=== PATIENT | male | born 1940 | race Caucasian/White ===

== ENCOUNTER 2016-10-15 05:28 | Inpatient (IN) | payer MEDICARE, OTHER ==
[2016-10-09 14:13] LABS: BASOPHILS 0.3 %; BASOPHILS ABSOLUTE 0.03 10/3/uL (0.0-0.16); EOSINOPHILS 2.6 %; EOSINOPHILS ABSOLUTE 0.29 10/3/uL (0.0-0.53); HEMATOCRIT 40.9 % (40.0-51.0); HEMOGLOBIN 13.3 g/dL (13.6-17.8); IMMATURE GRANULOCYTES 0.2 %; IMMATURE GRANULOCYTES ABSOLUTE 0.02 10/3/uL (0.0-0.11); LYMPHOCYTES 11.2 %; LYMPHOCYTES ABSOLUTE 1.23 10/3/uL (0.67-4.30); MEAN CORPUS HGB CONC 32.5 g/dL (32.0-36.0); MEAN CORPUSCULAR HEMOGLOB 31.7 pg (26.0-34.0); MEAN CORPUSCULAR VOLUME 97.4 fL (80-100); MEAN PLATELET VOLUME 12.4 fL (9.2-13.0); MONOCYTES 5.1 %; MONOCYTES ABSOLUTE 0.56 10/3/uL (0.21-1.20); NEUTROPHILS 80.6 %; NEUTROPHILS ABSOLUTE 8.89 10/3/uL (2.02-8.40); PLATELET COUNT 176 10/3/uL (150-400); RBC DISTRIBUTION WIDTH 15.3 % (12.0-16.0)
[2016-10-09 14:15] LABS: MANUAL DIFF NO %
[2016-10-09 14:18] LABS: INTERNATIONAL NORMAL RATI 1.2 UNITS (-); PROTIME (NOT ORD) 14.7 SEC (12.0-14.5)
[2016-10-09 14:25] LABS: A/G RATIO 0.9 (0.7-1.9); ALBUMIN 3.5 G/DL (3.5-5.0); ALKALINE PHOSPHATASE 144 U/L (45-117); BUN (BLOOD UREA NITROGEN) 33 MG/DL (6-23); CALCIUM, SERUM 9.3 MG/DL (8.5-10.4); CHLORIDE, SERUM 95 MMOL/L (96-112); CO2 (CARBON DIOXIDE) 33 MMOL/L (24-34); CREATININE 8.18 MG/DL (0.70-1.30); GFR AFRICAN AMERICAN 7 ML/MIN (>=60); GFR NON AFRICAN AMERICAN 6 ML/MIN (>=60); GLOBULIN 4.1 G/DL (2.5-4.1); GLUCOSE, SERUM 122 MG/DL (60-99); POTASSIUM, SERUM 4.7 MMOL/L (3.5-5.3); SGOT(AST) 5 U/L (5-40); SGPT(ALT) 11 U/L (5-65); SODIUM, SERUM 139 MMOL/L (135-148); TOTAL BILIRUBIN 0.8 MG/DL (0-1.2); TOTAL PROTEIN 7.6 G/DL (6.0-8.5)
[2016-10-09 14:47] LABS: B NATRIURETIC PEPTIDE (BNP) 2493.8 PG/ML (< 100.0)
[2016-10-09 22:19] LABS: GLYCOHEMOGLOBIN (HbA1c) 6.8 % (4.7-6.1)
--- NOTE | ~2016-10-15 | OP ---
Record Of Operation [facility] [address] [place]. [address] NAME: COREY ORTIZ : 41 STATUS : ADM IN PAT#: [id number] AGE: 76 ADM/REG DATE : 10/15/16 MR#: [id number] REPORT SERV DATE: 10/16/16 DICTATED BY: RASHI SINCLAIR DATE: 10/15/16 REPORT STATUS : Draft TRANSCRIBED BY: ADRIEN DATE: 10/15/16 DATE OF PROCEDURE: TAVR NOTE PROCEDURE: Right transfemoral transcatheter aortic valve replacement using 34 mm Medtronic Evolut R. INDICATIONS FOR PROCEDURE: Mr. Corey Ortiz is a 76-year-old gentleman with severe aortic stenosis. He has severe coronary artery disease, recently had a stent placed to mid LAD. He has renal failure, he is on dialysis. He has had prior stroke. He has had history of diabetes, hypertension, hyperlipidemia, polycythemia vera, and prostate cancer. His ejection fraction was 30%. His predicted mortality by the STS score 6.7%, predicted morbidity-mortality 39.1%. His predicted mortality by the EuroSCORE 4.25%. He presents with class III heart failure symptoms. He was seen by both Dr. Castañeda and Dr. Moran, who felt he was a poor candidate for surgical aortic valve replacement. He was seen by the entire [facility] valve team, who felt he was a better candidate for transcatheter aortic valve replacement. POSTOPERATIVE DIAGNOSIS: Successful right transfemoral transcatheter aortic valve replacement using Medtronic 34 mm Mon Evolut R. OPERATORS: Theo Moran M.D., Rashi Sinclair M.D., and Haider Campuzano M.D. OPERATIVE TECHNIQUE: The patient was prepped and draped in the usual sterile fashion. He received propofol anesthesia. He was not intubated. He had a right heart catheter inserted via IJ approach. He had a right IJ sheath, to allow placement of a temporary pacemaker. He had a radial A-line in place. The patient was prepped and draped in the usual sterile fashion. The right and left groins were anesthetized with lidocaine 1%, 12 mL. Access to both the left and right femoral arteries obtained using a front wall technique using a micropuncture technique, angiogram demonstrated access in the common femoral arteries. The pigtail was placed through the left femoral artery sheath inserted in the non-coronary cusp to allow us the position the Medtronic valve. Two ProGlide sutures were placed in the right femoral artery at 10 o'clock and 2 o'clock position in the pre-close technique. We then replaced the 6-Sri Lankan sheath. We delivered a multipurpose catheter over the J-wire into the ascending aorta. We crossed the aortic valve without difficulty using an AL1 and a straight wire. We then measured simultaneous pressures between the left ventricle and ascending aorta using a double lumen, [place] catheter. Record Of Operation [facility] [address] [place]. [address] NAME: COREY ORTIZ : 41 STATUS : ADM IN PAT#: [id number] AGE: 76 ADM/REG DATE : 10/15/16 MR#: [id number] REPORT SERV DATE: 10/16/16 DICTATED BY: RASHI SINCLAIR DATE: 10/15/16 REPORT STATUS : Draft TRANSCRIBED BY: ADRIEN DATE: 10/15/16 At this time, we placed the Lunderquist double curved wire in the left ventricle. The 6-Sri Lankan sheath was removed, the wire was kept in the ventricle, we then dilated the right femoral artery with the 16-Sri Lankan dilator. We then inserted the valve delivery system with inline sheath into the right femoral artery without difficulty. After delivery of the valve, he immediately received heparin IV, the activating clotting time was therapeutic. We then precisely positioned the Medtronic valve at the aortic annulus. The self expanding valve was initially deployed. With initial attempt at deployment of this valve, the patient developed hypotension with . He was emergently intubated without difficulty. He received chest compressions for about 1 minute. His blood pressure returned. Chest wall echo demonstrated no pericardial effusion, there is no evidence of tamponade. Once the blood pressure stabilized, we proceeded with the deployment of the Medtronic valve without rapid ventricular pacing, the valve was deployed. We had excellent position of this valve with careful deployment. The thoracic aortogram demonstrated no aortic insufficiency. Chest wall echocardiogram demonstrated no aortic insufficiency. We crossed the valve without difficulty using the pigtail catheter. We measured pullback pressure. At this time, we pulled the valve delivery system into the inline sheath, we removed the in- line sheath, keeping the wire in place. The completion aortogram demonstrated no flow in the distal portion of the right external iliac artery. Then, Dr. Campuzano used a J-wire through an UF catheter to go from the left femoral artery, antegrade to the right femoral artery. The Raabe sheath was placed from the left femoral artery into the right superficial femoral artery. Injection demonstrated markedly improved flow simply by placing the wire through the right common femoral artery. The access site was then dilated using a 6 mm x 4 cm balloon, two different inflations. We consulted Dr. Gamez from Vascular Surgery. Repeat angiograms demonstrated normal flow in the common femoral artery and slow flow in SFA. Multiple injections were repeated. There was slow flow into the right SFA. The team felt the patient had chronic occlusion, chronic disease throughout the right superficial femoral artery. At this time, the plan was to proceed with heparin infusion without further dilatation of the common femoral artery or the SFA, not to place a stent in the common femoral artery. The actual time of valve deployment was 1524. The cardiac output pre-deployment was 4.3 L/minute, post deployment the cardiac output 5.2 L/minute. The valve area pre-deployment Record Of [place] [id number] [place]. [address] NAME: COREY ORTIZ : 41 STATUS : ADM IN PAT#: [id number] AGE: 76 ADM/REG DATE : 10/15/16 MR#: [id number] REPORT SERV DATE: 10/16/16 DICTATED BY: RASHI SINCLAIR DATE: 10/15/16 REPORT STATUS : Draft TRANSCRIBED BY: ADRIEN DATE: 10/15/16 was 0.9 sq cm, post-deployment 2.43 sq cm. The blood pressure pre-deployment was 88/61, mean of 74, heart rate is 84; post deployment blood pressure was 127/67, mean of 88 with a heart rate of 106. The valve gradient pre-deployment was 28 mmHg mean, 31 mmHg peak. There was no gradient, gradient field, mean and peak postprocedure. The total contrast volume used was 200 mL. Total fluoro time was 39.1 minutes. Estimated blood loss was less than 50 mL. Total radiation dose of 3853 mGy. There is no aortic insufficiency by chest wall echo or thoracic aortogram. The AI index was 37. In summary, the patient had the right transfemoral transcatheter aortic valve replacement using a Medtronic 34 mm Evolut R valve. The valve area increased from 0.9 to 2.4, the gradient decreased from 28 mmHg mean to 0 mmHg mean. The procedure was complicated by EMD cardiac arrest requiring chest compressions and intubation. The valve was successfully deployed without rapid ventricular pacing. There was no flow at the right common femoral artery, which improved with balloon dilation alone. PLAN: 1. Heparin will be continued overnight. 2. Pacemaker left in place overnight and treatment with aspirin and clopidogrel. 3. Nephrology will be consulted, the patient was dialyzed preprocedure. RENÉ/ADRIEN Rashi Sinclair M.D. / [id number] CC: Theo Moran M.D.
--- NOTE | ~2016-10-15 | EEG ---
Electroencephalogram [facility] [address] [place]. [address] NAME: VALERIA APPIAH : 41 STATUS : ADM IN PAT#: [id number] AGE: 76 ADM/REG DATE : 10/15/16 MR#: [id number] REPORT SERV DATE: 10/16/16 DICTATED BY: DATE: REPORT STATUS : Draft TRANSCRIBED BY: MODL DATE: 10/16/16 NEUROLOGY EEG REPORT CLINICAL INDICATIONS: Encephalopathy, possible hemorrhage. INTERPRETATION: This EEG was performed using 10/20 electrode placement system. During the EEG study, symmetric background activity was noted with predominant occipital rhythm of roughly 8 hertz. Photic stimulation was performed without clear driving response. Hyperventilation was not performed secondary to recent surgery. Otherwise, the patient achieved drowsy state during the EEG study. No focal abnormalities, seizure activity, or seizure discharge was noted. No electrographic seizure or clinical seizure was captured during the EEG study. INTERPRETATION: This EEG study obtained during awake, drowsy state may be considered within normal limits. No focal abnormalities, seizure activity, or seizure discharge was otherwise noted. Clinical correlation is recommended. [facility]/MODL Cong Wharton MD / [id number] CC: Catherine Villarreal M.D.
--- NOTE | ~2016-10-15 | OP ---
Record Of [address] [place]. [address] NAME: VALERIA APPIAH : 41 STATUS : ADM IN PAT#: [id number] AGE: 76 ADM/REG DATE : 10/15/16 MR#: [id number] REPORT SERV DATE: 10/16/16 DICTATED BY: XENA MORAN DATE: 10/15/16 REPORT STATUS : Draft TRANSCRIBED BY: MODL DATE: 10/15/16 DATE OF PROCEDURE: 10/15/2016 PREOPERATIVE DIAGNOSES: 1. Aortic valve stenosis. 2. End-stage renal disease. 3. Coronary artery disease, status post previous coronary artery bypass grafting. 4. Severe peripheral vascular disease. 5. Chronic systolic heart failure (ejection fraction 25%). 6. History of previous cerebrovascular accident. 7. Diabetes mellitus type 2, non-insulin dependent. 8. Hypertension. 9. Prostate carcinoma. POSTOPERATIVE DIAGNOSES: 1. Aortic valve stenosis. 2. End-stage renal disease. 3. Coronary artery disease, status post previous coronary artery bypass grafting. 4. Severe peripheral vascular disease. 5. Chronic systolic heart failure (ejection fraction 25%). 6. History of previous cerebrovascular accident. 7. Diabetes mellitus type 2, non-insulin dependent. 8. Hypertension. 9. Prostate carcinoma. PROCEDURE PERFORMED: 1. Right transfemoral TAVR, 34 mm Medtronic Evolut R valve. 2. ProGlide closure of the right femoral artery x2. 3. Angio-Seal closure of left femoral artery x1. 4. Ascending aortography. 5. Right iliofemoral angiography. 6. PTCA of right iliac and femoral vessels. 7. Transthoracic echocardiography. SURGEONS: 1. Xena Moran M.D. 2. Haider Campuzano M.D. 3. Cole Sinclair M.D. 4. Zaki Castañeda. PAPER SAMPLE CLERK: Emanuel Prasad M.D. PRIMARY HEALTH WORKER: Cole Sinclair M.D., PRIMARY CARE: Lacey Killian M.D. Record Of [address] [place]. [address] NAME: VALERIA APPIAH : 41 STATUS : ADM IN PAT#: [id number] AGE: 76 ADM/REG DATE : 10/15/16 MR#: [id number] REPORT SERV DATE: 10/16/16 DICTATED BY: XENA MORAN DATE: 10/15/16 REPORT STATUS : Draft TRANSCRIBED BY: MODL DATE: 10/15/16 INDICATIONS: This is a 76-year-old gentleman with history of end-stage renal disease along with ischemic cardiomyopathy and previous coronary artery bypass grafting and stenting of the vessels earlier this year. He has a long history of aortic valve stenosis and severe peripheral vascular disease. In 05/2016, he apparently had a stroke, it affected his vision in right eye and equilibrium. Echocardiography demonstrated reduced ventricular function with known history of ejection fraction of 25% to 30%. He had a previous history of syncope in May also. Because of progressive dyspnea, he underwent repeat echocardiography, it demonstrated progression of his aortic valve stenosis. His most recent echocardiogram demonstrated an ejection fraction of 30% with a valve area of 0.8 sq cm and peak gradient of 46 and mean gradient 28 mmHg. Cardiac catheterization in July also demonstrated significant coronary artery disease. He underwent stenting of the distal LAD in August as planned for consideration for TAVR. He was discussed for possible aortic valve replacement. It was felt to be very high risk for surgical intervention. His risk of mortality by STS risk prediction model with 7% morbidity and was closer to 40%. We discussed possible TAVR procedure with the patient and his daughters. After discussing the operation, its indications, and risks, they wished to proceed. FINDINGS AT OPERATION: 1. Total rapid pacing time was not performed. 2. Actual time of TAVR deployment was 1524 hours. 3. Cardiac output pre-deployment 4.3, post deployment 5.2 L per minute. 4. Valve area pre-deployment was 0.89 cm, post deployment was 2.43 cm. 5. Pre-implant aortic pressures: Systolic 88, diastolic 61, mean 74 mmHg. 6. Postimplant aortic pressures: Systolic 127, diastolic 67, mean 88 mmHg. 7. Pre-implant AV gradient, mean 28, peak 31 mmHg. Post-implant AV gradient mean 5, peak 4 mmHg. 8. Contrast volume used 200 mL. 9. Fluoro time was 39.1 minute. 10.Estimated blood loss 50 mL. 11.Total mGy 3053. 12.AI index was 37. PROCEDURE: The patient was brought to the hybrid operating suite and laid in a supine position on the operating room table. We had discussions with the [employer] rep and Ladonna, who was with us today. After discussion, a re-examination of the CTA is felt that a right transfemoral approach would be feasible and this was preferable to the left subclavian artery approach for a low risk. Therefore, this procedure was performed through the right and left groins. Microneedle access to the left femoral artery and vein was carried out and right femoral artery. Confirmatory angiography of the left femoral arteries was performed. Temporary transvenous pacemaker was placed by Anesthesia, and the right IJ prior to coming in the room. A flexible wire was advanced up the left femoral artery and a pigtail catheter placed over this into the ascending aorta and in the noncoronary cusp. An angiography confirmed Record Of Operation [facility] [address] [facility] [place]. [address] NAME: VALERIA APPIAH : 42 STATUS : ADM IN PAT#: [id number] AGE: 76 ADM/REG DATE : 10/15/16 MR#: [id number] REPORT SERV DATE: 10/16/16 DICTATED BY: XENA MORAN DATE: 10/15/16 REPORT STATUS : Draft TRANSCRIBED BY: MODElian DATE: 10/15/16 presence and allowed us to the line the valve. Right femoral artery guidewire was placed and then 2 ProGlide closure devices were placed in the right femoral artery and deployed. Then, the AL1 catheter was advanced over guidewire into the ascending aorta. The valve was crossed with a straight wire. The AL1 catheter advanced and across the valve and an exchange wire was then advanced across the aortic valve. A Ghulam dual-lumen catheter was placed and simultaneous pressure measurements were made across the aortic valve. A Lunderquist guidewires advanced across aortic valve through the Ghulam catheter was removed. Then, the right femoral artery puncture site and iliac vessel was dilated using a 16-Mongolian introducer dilator. Then, the valve apparatus and sheath were brought up to the field and the valve delivery system was placed over the guidewire into the descending thoracic aorta. The valve was then loaded on the delivery system. The delivery system was then advanced across the upper around the arch of the aorta and across the aortic valve and positioned. Parallax was taking out of the angiography. Then without rapid ventricular pacing, the valve was attempted to be deployed. Unfortunately the core valve prosthetic devices slipped above the plane of the valve and we re-sheath. During this time, the patient's blood pressure fell and had a slow recovery. Compressions were given and epinephrine doses were administered by anesthesia with good recovery after [id number] to two minutes of compression. The patient was then intubated by anesthesia for airway maintenance given this event. The valve was then repositioned across the Evolut valve was then the that was repositioned across the [place] aortic valve annulus. Confirmatory positioning was obtained. We then deployed the valve a second time with good seating of the valve. Once the valve was in place, the delivery system was brought back down into the descending thoracic aorta. The pigtail catheter was brought out into the ascending aorta and confirmatory aortography was performed demonstrating no aortic insufficiency. Echocardiography was likewise performed demonstrating good valve position with no aortic insufficiency. The valve delivery system was then brought out through the right groin along with the sheath. The ProGlide closures were deployed in the right femoral artery. The pigtail catheter placed earlier in the left femoral artery was brought down to the aortic bifurcation. Angiography performed demonstrating occlusion of the right limb of the iliac artery. Guidewire was then placed across the bifurcation from the left side of the iliac system into the right and once this was secured, we were able to see that there was good flow down the right iliac and profunda femorals vessel. The SFA had severe disease. Because of concern about occlusion using the ProGlide devices, balloon angioplasty was performed of the right iliac and femoral vessels using the 4 x 6 balloon for 2 minutes I believe. The balloon was then deflated and contrast angiography demonstrated flow down the right iliac system and into the profundus. The superficial femoral vessel was occluded. Dr. Gamez was in the Vascular Suite nearby, he came over the room we discussed what to do about the superficial femoral system. On examination of the superficial femoral system more Record Of Operation [place] [address] [place]. [address] NAME: VALERIA APPIAH : 41 STATUS : ADM IN [facility]#: [id number] AGE: 76 ADM/REG DATE : 10/15/16 MR#: [id number] REPORT SERV DATE: 10/16/16 DICTATED BY: XENA MORAN DATE: 10/15/16 REPORT STATUS : Draft TRANSCRIBED BY: ADRIEN DATE: 10/15/16 distally, it was severely diseased and noted to be occluded distally and Dr. Gamez felt that there was no advantage in opening this artery. 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 Once this was completed, the angiography was again performed demonstrating flow down the iliac system and then the catheter removed from the left femoral artery and guidewire placed. The left femoral artery was closed using an Angio-Seal device. During the procedure, during the CPR time, we were concerned that we needed transcutaneous femoral venous access for bypass and a 6-Mongolian introducer was placed in the left femoral vein and this was later left in place at the end of the operation. The patient tolerated the procedure well. At the conclusion the procedure, the patient had dopplerable pulses in the dorsalis pedis of both feet. DISPOSITION: The patient was extubated in the operating room, taken to the Intensive Care Unit in stable in condition. NOHEMI/ADRIEN Xena Moran M.D. / [id number] CC: Catherine Villarreal M.D. Mark Thel, M.D.
--- NOTE | ~2016-10-15 | ECH ---
Echocardiogram [place] [address] [place]. [address] NAME: VALERIA APPIAH : 41 STATUS : ADM IN PAT#: [id number] AGE: 76 ADM/REG DATE : 10/15/16 MR#: [id number] REPORT SERV DATE: 10/16/16 DICTATED BY: EMANUEL CARPENTER DATE: 10/15/16 REPORT STATUS : Draft TRANSCRIBED BY: MODL DATE: 10/15/16 REQUESTING: Transcatheter aortic valve team, Dottie Villarreal, and Tatianna. INDICATIONS: This is a 76-year-old male for periprocedural monitoring for transcatheter aortic valve replacement. PROCEDURE: The preprocedure LVEF was 45% with global hypocontractility and septal dyskinesis with an underlying bundle branch block morphology. The preprocedure aortic valve area was 0.8 sq cm with a mean gradient of approximately 30 mmHg. During the middle of the procedure, there was loss of pulses and brief CPR was performed and intermediate echocardiogram was again performed at that time to evaluate LVEF which appeared to have decreased to 20%. There was global hypocontractility. There was no pericardial effusion. Pulse was regained and procedure continued. Following the procedure, there was successful placement of Medtronic CoreValve transcatheter aortic valve replacement. Postprocedure evaluation revealed bioprosthetic transcatheter valve in good position. There was no aortic regurgitation. The calculated aortic valve area was 1.8 sq cm with a mean gradient of 5 mmHg. There was no aortic regurgitation. The aortic valve area at that time was likely underestimated due to a low LVOT VTI of only 10 cm representing low output state. The LVOT diameter was 2.0 cm. CONCLUSION: SUCCESSFUL BIOPROSTHETIC TRANSCATHETER AORTIC VALVE REPLACEMENT WITH MEDTRONIC COREVALVE WITH NO AORTIC REGURGITATION AND MEAN GRADIENT OF 5 MMHG. LVEF 30% AT BEGINNING OF PROCEDURE, DECREASED TO 20% WHILE CRITICALLY ILL AND RETURNING TO BASELINE LVEF OF 30% IMMEDIATE POSTPROCEDURE. AEA/ADRIEN Emanuel Carpenter M.D. / [id number] CC: Theo Moran M.D.
--- NOTE | ~2016-10-15 | DS ---
Discharge Summary [facility] [address] [place]. [address] NAME: VALERIA APPIAH : 42 STATUS : DIS IN PAT#: [id number] AGE: 76 ADM/REG DATE : 10/15/16 MR#: [id number] REPORT SERV DATE: 11/02/16 DICTATED BY: XENA MORAN DATE: 11/01/16 REPORT STATUS : Draft TRANSCRIBED BY: ADRIEN DATE: 11/01/16 Data Collection from hospitalization DISCHARGE DIAGNOSES: 1. Aortic valve stenosis status post TAVR. 2. Embolic cerebrovascular accident. 3. Diabetes mellitus. 4. End-stage renal disease. 5. Hypertension. 6. History of polycythemia vera. 7. History of prostate cancer. 8. Ischemic cardiomyopathy. 9. History of cerebrovascular accident. 10.Hypercholesterolemia. 11.Coronary artery disease. CONSULTATIONS: Dr. Cong Wharton, Dr. Cole Sinclair, Dr. Sunny Torres, Dr. Chidi Stephen. PROCEDURES PERFORMED: 1. Right transfemoral TAVR, 34 mm Medtronic Evolut R valve, ProGlide closure of the right femoral artery x2, Angio-Seal closure of left femoral artery x1, ascending aortography, right iliofemoral angiography, PTCA of right iliac and femoral vessels, transthoracic echocardiography, 10/15/2016. 2. CT scan of the brain-stroke protocol, 10/16/2016. 3. CTA of the neck/brain-stroke protocol. 4. MRI of the brain, 10/16/2016. 5. CT scan of the brain without contrast, 10/18/2016. 6. Electroencephalogram, 10/16/2016. DISCHARGE MEDICATIONS: Aspirin 81 mg daily, Dialyvite as instructed, Coreg 3.125 mg twice a day, Ericka 180 mg daily, Cozaar 50 mg daily, Protonix 40 mg daily, Crestor 5 mg daily. CONDITION AT DISCHARGE: Stable. DISPOSITION: The patient was discharged home to be followed by home health care on an 1800- calorie cardiac/diabetic/renal diet with activities as instructed. He would follow up with Dr. Chidi Stephen, 11/22/2016. He would follow up with Dr. Shavon Barroso in four to six weeks following discharge. He would follow up with Dr. Cole Sinclair, 10/30/2016. He would follow up with Dr. Colten Shanks, 11/29/2016. He would follow up with Dr. Moran, 12/27/2016. HOSPITAL COURSE: This is a 76-year-old man, who has a history of end-stage renal disease along with ischemic cardiomyopathy and previous coronary artery bypass grafting and stenting of the vessels earlier this year. He has a long history of aortic valve stenosis and severe peripheral vascular disease. In May 2016, he apparently had a stroke, this affected the vision in the right eye and his equilibrium. Echocardiography demonstrated reduced ventricular function with known history of ejection fraction of 25%-30%. He also had a previous history of syncope in May also. Because of progressive dyspnea, he underwent Discharge Summary [address] [address] NAME: VALERIA APPIAH : 42 STATUS : DIS IN PAT#: [id number] AGE: 76 ADM/REG DATE : 10/15/16 MR#: [id number] REPORT SERV DATE: 11/02/16 DICTATED BY: XENA MORAN DATE: 11/01/16 REPORT STATUS : Draft TRANSCRIBED BY: ADRIEN DATE: 11/01/16 repeat echocardiography, which demonstrated progression of his aortic valve stenosis. His most recent echocardiogram demonstrated ejection fraction of 30% with a valve area of 0.8 sq cm and peak gradient of 46 and mean gradient 28 mmHg. Cardiac catheterization in July demonstrated significant coronary artery disease. He underwent stenting of the distal LAD in August as planned for consideration of TAVR. He was discussed for possible aortic valve replacement. It was felt to be very high risk for surgical intervention. Possible TAVR procedure was discussed with the patient and his family, it was agreed to proceed. He was admitted to the hospital at this time for further evaluation and treatment. Upon admission, the patient was taken to the operating room, where he underwent the above- mentioned procedure by myself and Dr. Cole Sinclair, Dr. Haider Campuzano, Dr. Jacques Castañeda. He tolerated this well and there were no complications. On postop day #1, he was seen by Dr. Cole Sinclair. He had some intermittent confusion during the night and agitation. He pulled this temporary pacemaker that morning. He became unresponsive. Hemodialysis therapy was performed. He was seen by Dr. Cong Wharton regarding encephalopathy and possible hemorrhage. The patient had undergone CT scan of the brain-stroke protocol as well as CTA of the neck/brain-stroke protocol and MRI of the brain. There was concern of small hemorrhage in the left occipital area prior to the event. He was not noted to have any bleeding issues and there was no history of hemorrhage. White blood cell count was 13.3. Aspirin was going to be continued. We would keep his systolic blood pressure under 160 mmHg. Aspirin was continued. Other anticoagulation and antiplatelets would be held. An electroencephalogram was performed. This was considered within normal limits. No focal abnormalities, seizure activity, or seizure discharge was otherwise noted. He was seen by Dr. Sunny Torres. The patient does have end-stage renal disease. Creatinine level was 7.64. Echocardiogram had been performed. Later in the day, he looked much better. He seemed to be back to his baseline. Hemodialysis therapy was performed. Left femoral sheet was in place. On 10/17/2016, he had no localizing symptoms. He had no edema. His incisions looked okay. He said he felt back to baseline. He was not confused. He was cooperative. He was in a sinus rhythm. Hemodialysis therapy was performed. Aspirin and Plavix were going to be restarted. Encephalopathy had resolved. Antiplatelets and anticoagulation remained on hold. He was seen by Dr. Chidi Stephen. Both of his feet were warm with positive pulses. He thought there was no need for intervention at this time. He was going to see the patient for outpatient followup. He had peripheral vascular disease and right iliac stenosis. On the , he was in a normal sinus rhythm. His lungs were clear. He had no edema. He was alert and responsive. Encephalopathy had improved. 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 CT scan of the brain without contrast was performed. Seroquel was going to be used at bedtime. CT scan showed stable hyperdensity in the medial left temporal lobe compatible with microhemorrhagic change associated with previous infarct demonstrated in this area. Additional small embolic infarcts were seen in the frontal and parietal lobes bilaterally as well as within the right occipital lobe. The next day, he had no shortness of breath or palpitations. He was in a sinus rhythm. Coreg was increased. TARA inhibitor was going to be added. Hemodialysis therapy continued. He had only minimal sleep overnight, but his hallucinations had improved. Seroquel and Lipitor had been continued. Aspirin was resumed. On 10/20/2016, he was wanting to go home. He was in a normal sinus rhythm. He had no new Discharge Summary [address] [address] NAME: VALERIA APPIAH : 42 STATUS : DIS IN PAT#: [id number] AGE: 76 ADM/REG DATE : 10/15/16 MR#: [id number] REPORT SERV DATE: 11/02/16 DICTATED BY: XENA MORAN DATE: 11/01/16 REPORT STATUS : Draft TRANSCRIBED BY: MODElian DATE: 11/01/16 complaints. He did have some watery bowel movement. Seroquel was stopped. He was evaluated by Physical Therapy. The next day, he was ambulating without difficulty. Discharge planning was performed. His T-max was 98.2. He had no confusion overnight. On 10/22/2016, the patient felt well. He reported that he was at his baseline. Discharge instructions were given. Due to his improved and stable condition, he was discharged home to be followed by home health care with the above-stated instructions. Information collected by: Stephanie Michelle I submit the above information as my discharge summary. TG/ADRIEN Xena Moran M.D. / [id number] CC: Catherine Villarreal M.D. Charles Scott Joels, M.D. Claude Galphin, M.D. Mark Thel, M.D. Chun C. Huang, MD
--- NOTE | ~2016-10-15 | CN ---
Consultation Report [facility] [address] [place]. [address] NAME: VALERIA APPIAH : 42 STATUS : ADM IN PAT#: [id number] AGE: 76 ADM/REG DATE : 10/15/16 MR#: [id number] REPORT SERV DATE: 10/16/16 DICTATED BY: DATE: REPORT STATUS : Draft TRANSCRIBED BY: MODL DATE: 10/16/16 NEUROLOGY CONSULTATION DATE OF CONSULTATION: 10/16/2016 REASON FOR CONSULT: Encephalopathy and possible hemorrhage. HISTORY OF PRESENT ILLNESS: This is a 76-year-old male who presented to [facility] for transcatheter aortic valve replacement. The patient, afterwards, was noted to have encephalopathy with the patient being mildly confused with this morning the patient being acutely unresponsive, difficult to arouse. The patient was taken to CT angiogram head and neck and unfortunately noncontrast CT scan of the brain was not obtained. There is a concern of small hemorrhage in the left occipital area prior to the event. The patient was not noted to have any bleeding issues and no history of hemorrhage. The patient does have a history of recent transcatheter aortic valve replacement with the patient also noted to be end-stage renal disease. The patient's past medical history and review of systems unable to be obtained but does not appear to have any previous recent medical issues. PAST MEDICAL HISTORY: The patient's past medical history is also significant for history of diabetes, hypertension, and dyslipidemia. The patient also has a history of polycythemia vera, history of CVA with right peripheral visual field deficits, cardiomegaly, and coronary artery disease. FAMILY HISTORY: Significant for premature coronary artery disease. ALLERGIES: THE PATIENT IS NOTED TO HAVE ALLERGY TO CIPROFLOXACIN AND MIDAZOLAM. SOCIAL HISTORY: Denies tobacco, alcohol, or recreational drug usage. The patient denies current tobacco usage but does have previous history of tobacco usage in the past. REVIEW OF SYSTEMS: Again unable to be obtained secondary to the patient's current mental status at the time of evaluation. MEDICATIONS: The patient's current medications consist of aspirin 81 mg p.o. daily; Bactroban; Claritin; Lipitor; NovoLog; dextrose; Pepcid; Plavix; Senokot; and sodium. No sedation was noted. The patient does have intermittent Levophed drip. PHYSICAL EXAMINATION: VITAL SIGNS: Overnight, the patient was noted to have vital signs with T-max of 97.4, heart rate of 68 to 78, respirations of 11 to 36, and blood pressure of 93 to 122 over 48 to 66. Consultation Report [facility] [id number] [place]. [address] NAME: VALERIA APPIAH : 42 STATUS : ADM IN PAT#: [id number] AGE: 76 ADM/REG DATE : 10/15/16 MR#: [id number] REPORT SERV DATE: 10/16/16 DICTATED BY: DATE: REPORT STATUS : Draft TRANSCRIBED BY: MODL DATE: 10/16/16 GENERAL: The patient is well developed, well nourished, in no acute distress. CARDIOVASCULAR: Regular rate and rhythm. No carotid bruits were otherwise auscultated. PULMONARY: Examination was clear to auscultation bilaterally. NEUROLOGICAL: The patient was obtunded and is arousable with noxious stimulation. Mild difficulty maintaining arousal but once aroused, the patient is verbal, answering questions and following commands. Cranial nerves 2 through 12, pupils equal, round, and reactive to light. Mild dysconjugate gaze but otherwise horizontal eye movement was noted to be intact. [id number] response was noted at the time of evaluation. Symmetrical facial expression. Midline tongue. Normal palatal movement. The patient appeared to have intact facial sensation and was noted to have intact sensation in bilateral upper and lower extremities. Deep tendon reflex was 1+ throughout. The patient was noted to be able to move the right upper and right lower extremity as well as resist gravity in the right lower as well as left lower extremity on examination. Gait and cerebellar examination was not evaluated secondary to acute symptom as well as the patient's mental status. LABORATORY STUDIES: Demonstrated white blood cell count of 13.3, hemoglobin of 12.1, hematocrit of 36.6, and platelet count of 191. Chemistry panel: Sodium 140, potassium 5.3, chloride 103, bicarb 25, BUN of 30, creatinine of 7.64, glucose of 97, calcium of 8.5, and magnesium of 2.0. CT scan of the brain was reviewed. Noncontrast CT scan of the brain is unavailable for comparison; however, the patient was noted to have dinora major blood vessels with the patient's CT head with contrast concerning for contrast in the left occipital area, concerning for possible hemorrhage versus contrast in the previous encephalomalacia area. No mass effect or midline shift was otherwise noted. IMPRESSION: 1. Encephalopathy. 2. Abnormal CT scan of the brain. The patient was noted to have mild confusion overnight with the patient noted to be difficult to arouse this morning. On examination, the patient was arousable with noxious stimulation and follow commands with the patient noted to be oriented to month as well as year but not to place. CT angiogram of the head as well as the neck is concerning for possible left occipital hemorrhage versus contrast enhancement of previous encephalomalacia area. Unfortunately, there is no noncontrast CT scan of the brain for comparison. Currently there is no mass effect or midline shift at the time of evaluation. We are recommending holding other anticoagulation or antiplatelets. We will continue aspirin 81 mg p.o. daily as the patient was recently having aortic valve replacement. We will obtain MRI of the brain without contrast as there is currently no plan for hemodialysis. We are recommending to keep systolic blood pressure under 160 mmHg. We will perform q.1 hour Neurocheks. RECOMMENDATIONS: 1. Aspirin 81 mg p.o. daily. 2. MRI of the brain without contrast. Consultation Report [address] [place]. [address] NAME: VALERIA APPIAH : 42 STATUS : ADM IN [facility]#: [id number] AGE: 76 ADM/REG DATE : 10/15/16 MR#: [id number] REPORT SERV DATE: 10/16/16 DICTATED BY: DATE: REPORT STATUS : Draft TRANSCRIBED BY: MODL DATE: 10/16/16 3. Keep systolic blood pressure under 160 mmHg. 4. Hold other anticoagulation and antiplatelets. [facility]/MODL Cong Wharton MD / [id number] CC: Catherine Villarreal M.D.
[~2016-10-15 05:28] MED LIST: ABX IV/IM; ALLEGRA180 PO; AMLODIPINE BESYLATE PO; ASA5GR PO; ASAB PO; ASABAYER PO; ATV.5 PO; ATV1 PO; BUM1 PO; CIALIS20 MG PO; COMBIVENT RESPIM4 GM INH; COREG PO; COREG25 PO; COREG3 PO; CRESTOR10 PO; CRESTOR5 MG PO; DEMA20 PO; DIALYVITE PO; DIOV160 PO; DIOVAN320 MG PO; GLUCXL2.5 PO; HYDRALAZINE100 MG PO; KLOR-CON M2020 MEQ PO; LIPITOR10 PO; LISINOPRIL40 MG PO; LOP25 PO; NORV5 PO; OMNICEF300 PO; P10 PO; P20 PO; PEP20 PO; PHOSLO PO; PLAVIX PO; PRAVACHOL40 MG PO; PROTONIX PO; SODBICAR10 PO; STEROID INJECTION IV/IM; TRADJENTA5 MG PO; TUMSROLL PO; Z5 PO
[2016-10-15 08:20] LABS: BASOPHILS 0.2 %; BASOPHILS ABSOLUTE 0.02 10/3/uL (0.0-0.16); EOSINOPHILS 2.5 %; EOSINOPHILS ABSOLUTE 0.27 10/3/uL (0.0-0.53); HEMOGLOBIN 12.2 g/dL (13.6-17.8); IMMATURE GRANULOCYTES 0.1 %; IMMATURE GRANULOCYTES ABSOLUTE 0.01 10/3/uL (0.0-0.11); LYMPHOCYTES ABSOLUTE 0.99 10/3/uL (0.67-4.30); MEAN CORPUSCULAR HEMOGLOB 31.4 pg (26.0-34.0); MEAN CORPUSCULAR VOLUME 95.1 fL (80-100); MEAN PLATELET VOLUME 12.1 fL (9.2-13.0); MONOCYTES 4.3 %; MONOCYTES ABSOLUTE 0.47 10/3/uL (0.21-1.20); NEUTROPHILS 83.9 %; PLATELET COUNT 178 10/3/uL (150-400); RBC DISTRIBUTION WIDTH 15.5 % (12.0-16.0); RED CELL COUNT 3.89 10/6/uL (4.7-6.1)
[2016-10-15 08:22] LABS: MANUAL DIFF NO %
[2016-10-15 08:35] LABS: ALBUMIN 3.4 G/DL (3.5-5.0); BUN (BLOOD UREA NITROGEN) 35 MG/DL (6-23); CALCIUM, SERUM 8.8 MG/DL (8.5-10.4); CHLORIDE, SERUM 102 MMOL/L (96-112); CO2 (CARBON DIOXIDE) 29 MMOL/L (24-34); CREATININE 7.51 MG/DL (0.70-1.30); GFR AFRICAN AMERICAN 7 ML/MIN (>=60); GFR NON AFRICAN AMERICAN 6 ML/MIN (>=60); GLUCOSE, SERUM 148 MG/DL (60-99); PHOSPHORUS, SERUM 2.5 MG/DL (2.5-4.5); POTASSIUM, SERUM 3.5 MMOL/L (3.5-5.3); SODIUM, SERUM 141 MMOL/L (135-148)
[2016-10-15 08:58] LABS: MAX AMP (ADP) 51.9 MM (35-68); TEG - ANGLE 70.9 DEG (53-72); TEG - COAGULATION INDEX 1.9 (-3 TO 3); TEG - RATE 5.8 MIN (5.0-10.0); TEG PLAVIX/EFFIENT/TICLID(ADP) 33.5 % INHIB (< 40)
[2016-10-15 13:07] LABS: BASOPHILS 0.2 %; BASOPHILS ABSOLUTE 0.02 10/3/uL (0.0-0.16); EOSINOPHILS 3.5 %; EOSINOPHILS ABSOLUTE 0.32 10/3/uL (0.0-0.53); HEMATOCRIT 38.7 % (40.0-51.0); HEMOGLOBIN 13.1 g/dL (13.6-17.8); IMMATURE GRANULOCYTES 0.6 %; IMMATURE GRANULOCYTES ABSOLUTE 0.05 10/3/uL (0.0-0.11); LYMPHOCYTES 10.6 %; LYMPHOCYTES ABSOLUTE 0.96 10/3/uL (0.67-4.30); MEAN CORPUS HGB CONC 33.9 g/dL (32.0-36.0); MEAN CORPUSCULAR HEMOGLOB 32.3 pg (26.0-34.0); MEAN CORPUSCULAR VOLUME 95.3 fL (80-100); MEAN PLATELET VOLUME 12.4 fL (9.2-13.0); MONOCYTES 6.4 %; MONOCYTES ABSOLUTE 0.58 10/3/uL (0.21-1.20); NEUTROPHILS 78.7 %; NEUTROPHILS ABSOLUTE 7.15 10/3/uL (2.02-8.40); PLATELET COUNT 182 10/3/uL (150-400); RBC DISTRIBUTION WIDTH 15.1 % (12.0-16.0); RED CELL COUNT 4.06 10/6/uL (4.7-6.1); WHITE BLOOD CELLS 9.1 10/3/uL (4.5-10.5)
[2016-10-15 13:14] LABS: MANUAL DIFF NO %
[2016-10-15 13:25] LABS: A/G RATIO 0.9 (0.7-1.9); ALBUMIN 3.6 G/DL (3.5-5.0); ALKALINE PHOSPHATASE 142 U/L (45-117); BUN (BLOOD UREA NITROGEN) 24 MG/DL (6-23); CALCIUM, SERUM 9.3 MG/DL (8.5-10.4); CHLORIDE, SERUM 105 MMOL/L (96-112); CO2 (CARBON DIOXIDE) 29 MMOL/L (24-34); CREATININE 6.72 MG/DL (0.70-1.30); GFR AFRICAN AMERICAN 8 ML/MIN (>=60); GFR NON AFRICAN AMERICAN 7 ML/MIN (>=60); GLUCOSE, SERUM 141 MG/DL (60-99); POTASSIUM, SERUM 4.1 MMOL/L (3.5-5.3); SGOT(AST) 5 U/L (5-40); SGPT(ALT) 10 U/L (5-65); SODIUM, SERUM 143 MMOL/L (135-148); TOTAL BILIRUBIN 0.7 MG/DL (0-1.2); TOTAL PROTEIN 7.6 G/DL (6.0-8.5)
[2016-10-15 17:37] LABS: HEMATOCRIT 35.3 % (40.0-51.0); HEMOGLOBIN 11.6 g/dL (13.6-17.8); PLATELET COUNT 181 10/3/uL (150-400)
[2016-10-15 17:49] LABS: BUN (BLOOD UREA NITROGEN) 25 MG/DL (6-23); CALCIUM, SERUM 8.5 MG/DL (8.5-10.4); CHLORIDE, SERUM 104 MMOL/L (96-112); CO2 (CARBON DIOXIDE) 27 MMOL/L (24-34); CREATININE 7.15 MG/DL (0.70-1.30); GFR AFRICAN AMERICAN 8 ML/MIN (>=60); GFR NON AFRICAN AMERICAN 7 ML/MIN (>=60); GLUCOSE, SERUM 186 MG/DL (60-99); POTASSIUM, SERUM 3.9 MMOL/L (3.5-5.3); SODIUM, SERUM 141 MMOL/L (135-148)
[2016-10-15 17:53] LABS: INTERNATIONAL NORMAL RATI 1.5 UNITS (-)
[2016-10-15 18:08] LABS: PARTIAL THROMBO TIME > 150.0 SEC (22.5-37.2); PROTIME (NOT ORD) 17.6 SEC (12.0-14.5)
[2016-10-15 23:38] LABS: HEMATOCRIT 37.9 % (40.0-51.0); HEMOGLOBIN 12.5 g/dL (13.6-17.8)
[2016-10-15 23:54] LABS: CALCIUM, SERUM 8.3 MG/DL (8.5-10.4); CHLORIDE, SERUM 103 MMOL/L (96-112); CO2 (CARBON DIOXIDE) 25 MMOL/L (24-34); CREATININE 7.41 MG/DL (0.70-1.30); GFR AFRICAN AMERICAN 8 ML/MIN (>=60); GFR NON AFRICAN AMERICAN 7 ML/MIN (>=60); SODIUM, SERUM 140 MMOL/L (135-148)
[2016-10-15 23:57] LABS: BUN (BLOOD UREA NITROGEN) 29 MG/DL (6-23); GLUCOSE, SERUM 124 MG/DL (60-99); POTASSIUM, SERUM 4.8 MMOL/L (3.5-5.3)
[2016-10-16 04:57] LABS: BASOPHILS 0.2 %; BASOPHILS ABSOLUTE 0.02 10/3/uL (0.0-0.16); EOSINOPHILS 1.5 %; HEMATOCRIT 36.6 % (40.0-51.0); HEMOGLOBIN 12.1 g/dL (13.6-17.8); IMMATURE GRANULOCYTES 0.5 %; IMMATURE GRANULOCYTES ABSOLUTE 0.06 10/3/uL (0.0-0.11); LYMPHOCYTES 7.7 %; LYMPHOCYTES ABSOLUTE 1.03 10/3/uL (0.67-4.30); MEAN CORPUS HGB CONC 33.1 g/dL (32.0-36.0); MEAN CORPUSCULAR VOLUME 96.8 fL (80-100); MEAN PLATELET VOLUME 12.7 fL (9.2-13.0); MONOCYTES 5.9 %; MONOCYTES ABSOLUTE 0.78 10/3/uL (0.21-1.20); NEUTROPHILS 84.2 %; NEUTROPHILS ABSOLUTE 11.24 10/3/uL (2.02-8.40); PLATELET COUNT 191 10/3/uL (150-400); RBC DISTRIBUTION WIDTH 15.4 % (12.0-16.0); RED CELL COUNT 3.78 10/6/uL (4.7-6.1)
[2016-10-16 04:58] LABS: MANUAL DIFF NO %; WHITE BLOOD CELLS 13.3 10/3/uL (4.5-10.5)
[2016-10-16 05:08] LABS: A/G RATIO 0.8 (0.7-1.9); ALBUMIN 3.1 G/DL (3.5-5.0); BUN (BLOOD UREA NITROGEN) 30 MG/DL (6-23); CALCIUM, SERUM 8.5 MG/DL (8.5-10.4); CHLORIDE, SERUM 103 MMOL/L (96-112); CO2 (CARBON DIOXIDE) 25 MMOL/L (24-34); CREATININE 7.64 MG/DL (0.70-1.30); GFR AFRICAN AMERICAN 7 ML/MIN (>=60); GFR NON AFRICAN AMERICAN 6 ML/MIN (>=60); GLOBULIN 3.7 G/DL (2.5-4.1); POTASSIUM, SERUM 5.3 MMOL/L (3.5-5.3); SGOT(AST) 24 U/L (5-40); SGPT(ALT) 19 U/L (5-65); SODIUM, SERUM 140 MMOL/L (135-148); TOTAL BILIRUBIN 0.7 MG/DL (0-1.2); TOTAL PROTEIN 6.8 G/DL (6.0-8.5)
[2016-10-16 05:11] LABS: ALKALINE PHOSPHATASE 121 U/L (45-117); GLUCOSE, SERUM 97 MG/DL (60-99)
[2016-10-16 11:18] LABS: INTERNATIONAL NORMAL RATI 1.2 UNITS (-); PROTIME (NOT ORD) 15.4 SEC (12.0-14.5)
[2016-10-16 11:19] LABS: PARTIAL THROMBO TIME 33.1 SEC (22.5-37.2)
[2016-10-17 03:56] LABS: BASOPHILS 0.1 %; BASOPHILS ABSOLUTE 0.01 10/3/uL (0.0-0.16); EOSINOPHILS 1.3 %; EOSINOPHILS ABSOLUTE 0.17 10/3/uL (0.0-0.53); HEMATOCRIT 34.7 % (40.0-51.0); HEMOGLOBIN 11.7 g/dL (13.6-17.8); IMMATURE GRANULOCYTES 0.4 %; IMMATURE GRANULOCYTES ABSOLUTE 0.05 10/3/uL (0.0-0.11); LYMPHOCYTES 8.1 %; LYMPHOCYTES ABSOLUTE 1.07 10/3/uL (0.67-4.30); MANUAL DIFF NO %; MEAN CORPUS HGB CONC 33.7 g/dL (32.0-36.0); MEAN CORPUSCULAR HEMOGLOB 32.5 pg (26.0-34.0); MEAN CORPUSCULAR VOLUME 96.4 fL (80-100); MEAN PLATELET VOLUME 12.5 fL (9.2-13.0); MONOCYTES 5.7 %; MONOCYTES ABSOLUTE 0.76 10/3/uL (0.21-1.20); NEUTROPHILS 84.4 %; NEUTROPHILS ABSOLUTE 11.17 10/3/uL (2.02-8.40); PLATELET COUNT 152 10/3/uL (150-400); RBC DISTRIBUTION WIDTH 15.6 % (12.0-16.0); WHITE BLOOD CELLS 13.2 10/3/uL (4.5-10.5)
[2016-10-17 04:10] LABS: ALBUMIN 3.4 G/DL (3.5-5.0); CALCIUM, SERUM 8.6 MG/DL (8.5-10.4); CO2 (CARBON DIOXIDE) 22 MMOL/L (24-34); POTASSIUM, SERUM 5.5 MMOL/L (3.5-5.3)
[2016-10-17 04:11] LABS: BUN (BLOOD UREA NITROGEN) 41 MG/DL (6-23); CHLORIDE, SERUM 91 MMOL/L (96-112); CREATININE 8.94 MG/DL (0.70-1.30); GFR AFRICAN AMERICAN 6 ML/MIN (>=60); GFR NON AFRICAN AMERICAN 5 ML/MIN (>=60); GLUCOSE, SERUM 117 MG/DL (60-99); PHOSPHORUS, SERUM 5.9 MG/DL (2.5-4.5); SODIUM, SERUM 131 MMOL/L (135-148)
[2016-10-18 03:34] LABS: BASOPHILS 0.1 %; BASOPHILS ABSOLUTE 0.01 10/3/uL (0.0-0.16); EOSINOPHILS 2.5 %; EOSINOPHILS ABSOLUTE 0.26 10/3/uL (0.0-0.53); HEMATOCRIT 33.1 % (40.0-51.0); HEMOGLOBIN 11.1 g/dL (13.6-17.8); IMMATURE GRANULOCYTES 0.4 %; IMMATURE GRANULOCYTES ABSOLUTE 0.04 10/3/uL (0.0-0.11); LYMPHOCYTES 8.1 %; LYMPHOCYTES ABSOLUTE 0.86 10/3/uL (0.67-4.30); MEAN CORPUS HGB CONC 33.5 g/dL (32.0-36.0); MEAN CORPUSCULAR HEMOGLOB 31.7 pg (26.0-34.0); MEAN CORPUSCULAR VOLUME 94.6 fL (80-100); MEAN PLATELET VOLUME 12.6 fL (9.2-13.0); MONOCYTES 9.4 %; MONOCYTES ABSOLUTE 0.99 10/3/uL (0.21-1.20); NEUTROPHILS 79.5 %; PLATELET COUNT 141 10/3/uL (150-400); RBC DISTRIBUTION WIDTH 15.6 % (12.0-16.0); WHITE BLOOD CELLS 10.6 10/3/uL (4.5-10.5)
[2016-10-18 03:35] LABS: MANUAL DIFF NO %
[2016-10-18 03:47] LABS: CALCIUM, SERUM 8.6 MG/DL (8.5-10.4); CHLORIDE, SERUM 100 MMOL/L (96-112); POTASSIUM, SERUM 4.7 MMOL/L (3.5-5.3)
[2016-10-18 03:50] LABS: CO2 (CARBON DIOXIDE) 27 MMOL/L (24-34); SODIUM, SERUM 139 MMOL/L (135-148)
[2016-10-18 03:51] LABS: BUN (BLOOD UREA NITROGEN) 30 MG/DL (6-23); CREATININE 7.78 MG/DL (0.70-1.30); GFR AFRICAN AMERICAN 7 ML/MIN (>=60); GFR NON AFRICAN AMERICAN 6 ML/MIN (>=60); GLUCOSE, SERUM 92 MG/DL (60-99)
[2016-10-19 09:18] LABS: BASOPHILS 0.1 %; BASOPHILS ABSOLUTE 0.01 10/3/uL (0.0-0.16); EOSINOPHILS 3.5 %; EOSINOPHILS ABSOLUTE 0.37 10/3/uL (0.0-0.53); HEMATOCRIT 31.4 % (40.0-51.0); HEMOGLOBIN 10.5 g/dL (13.6-17.8); IMMATURE GRANULOCYTES 0.5 %; IMMATURE GRANULOCYTES ABSOLUTE 0.05 10/3/uL (0.0-0.11); LYMPHOCYTES 5.1 %; LYMPHOCYTES ABSOLUTE 0.54 10/3/uL (0.67-4.30); MEAN CORPUS HGB CONC 33.4 g/dL (32.0-36.0); MEAN CORPUSCULAR HEMOGLOB 31.2 pg (26.0-34.0); MEAN CORPUSCULAR VOLUME 93.2 fL (80-100); MEAN PLATELET VOLUME 12.2 fL (9.2-13.0); MONOCYTES 10.9 %; MONOCYTES ABSOLUTE 1.16 10/3/uL (0.21-1.20); NEUTROPHILS 79.9 %; NEUTROPHILS ABSOLUTE 8.56 10/3/uL (2.02-8.40); PLATELET COUNT 126 10/3/uL (150-400); RBC DISTRIBUTION WIDTH 15.2 % (12.0-16.0); RED CELL COUNT 3.37 10/6/uL (4.7-6.1); WHITE BLOOD CELLS 10.7 10/3/uL (4.5-10.5)
[2016-10-19 09:19] LABS: MANUAL DIFF NO %
[2016-10-19 09:41] LABS: ALBUMIN 2.8 G/DL (3.5-5.0); CALCIUM, SERUM 8.8 MG/DL (8.5-10.4); CHLORIDE, SERUM 99 MMOL/L (96-112); CO2 (CARBON DIOXIDE) 24 MMOL/L (24-34); POTASSIUM, SERUM 4.6 MMOL/L (3.5-5.3); SODIUM, SERUM 134 MMOL/L (135-148)
[2016-10-19 09:44] LABS: BUN (BLOOD UREA NITROGEN) 41 MG/DL (6-23); GFR AFRICAN AMERICAN 5 ML/MIN (>=60); GFR NON AFRICAN AMERICAN 4 ML/MIN (>=60); GLUCOSE, SERUM 63 MG/DL (60-99)
[2016-10-20 06:36] LABS: BASOPHILS 0.2 %; BASOPHILS ABSOLUTE 0.02 10/3/uL (0.0-0.16); EOSINOPHILS 3.4 %; HEMATOCRIT 34.2 % (40.0-51.0); HEMOGLOBIN 11.4 g/dL (13.6-17.8); IMMATURE GRANULOCYTES 0.5 %; IMMATURE GRANULOCYTES ABSOLUTE 0.04 10/3/uL (0.0-0.11); LYMPHOCYTES 10.3 %; LYMPHOCYTES ABSOLUTE 0.91 10/3/uL (0.67-4.30); MEAN CORPUS HGB CONC 33.3 g/dL (32.0-36.0); MEAN CORPUSCULAR HEMOGLOB 31.2 pg (26.0-34.0); MEAN CORPUSCULAR VOLUME 93.7 fL (80-100); MEAN PLATELET VOLUME 12.4 fL (9.2-13.0); MONOCYTES 9.6 %; MONOCYTES ABSOLUTE 0.85 10/3/uL (0.21-1.20); PLATELET COUNT 160 10/3/uL (150-400); RBC DISTRIBUTION WIDTH 15.2 % (12.0-16.0); RED CELL COUNT 3.65 10/6/uL (4.7-6.1); WHITE BLOOD CELLS 8.8 10/3/uL (4.5-10.5)
[2016-10-20 06:44] LABS: MANUAL DIFF NO %
[2016-10-20 06:49] LABS: ALBUMIN 2.9 G/DL (3.5-5.0); CALCIUM, SERUM 8.9 MG/DL (8.5-10.4); CHLORIDE, SERUM 101 MMOL/L (96-112); CO2 (CARBON DIOXIDE) 27 MMOL/L (24-34); POTASSIUM, SERUM 3.8 MMOL/L (3.5-5.3); SODIUM, SERUM 140 MMOL/L (135-148)
[2016-10-20 06:50] LABS: BUN (BLOOD UREA NITROGEN) 26 MG/DL (6-23); CREATININE 7.69 MG/DL (0.70-1.30); GFR AFRICAN AMERICAN 7 ML/MIN (>=60); GFR NON AFRICAN AMERICAN 6 ML/MIN (>=60); GLUCOSE, SERUM 88 MG/DL (60-99)
[2016-10-22 08:13] LABS: BASOPHILS 0.2 %; BASOPHILS ABSOLUTE 0.02 10/3/uL (0.0-0.16); EOSINOPHILS 4.2 %; EOSINOPHILS ABSOLUTE 0.37 10/3/uL (0.0-0.53); HEMATOCRIT 33.4 % (40.0-51.0); HEMOGLOBIN 11.4 g/dL (13.6-17.8); IMMATURE GRANULOCYTES 0.4 %; IMMATURE GRANULOCYTES ABSOLUTE 0.04 10/3/uL (0.0-0.11); LYMPHOCYTES 11.1 %; LYMPHOCYTES ABSOLUTE 0.99 10/3/uL (0.67-4.30); MEAN CORPUS HGB CONC 34.1 g/dL (32.0-36.0); MEAN CORPUSCULAR HEMOGLOB 31.3 pg (26.0-34.0); MEAN CORPUSCULAR VOLUME 91.8 fL (80-100); MEAN PLATELET VOLUME 12.2 fL (9.2-13.0); MONOCYTES 13.3 %; MONOCYTES ABSOLUTE 1.18 10/3/uL (0.21-1.20); NEUTROPHILS 70.8 %; PLATELET COUNT 175 10/3/uL (150-400); RBC DISTRIBUTION WIDTH 14.8 % (12.0-16.0); RED CELL COUNT 3.64 10/6/uL (4.7-6.1); WHITE BLOOD CELLS 8.9 10/3/uL (4.5-10.5)
[2016-10-22 08:17] LABS: MANUAL DIFF NO %
[2016-10-22 08:24] LABS: ALBUMIN 2.8 G/DL (3.5-5.0); CALCIUM, SERUM 8.6 MG/DL (8.5-10.4); CHLORIDE, SERUM 97 MMOL/L (96-112); CO2 (CARBON DIOXIDE) 24 MMOL/L (24-34); GFR AFRICAN AMERICAN 5 ML/MIN (>=60); GFR NON AFRICAN AMERICAN 4 ML/MIN (>=60); GLUCOSE, SERUM 85 MG/DL (60-99); PHOSPHORUS, SERUM 4.5 MG/DL (2.5-4.5); POTASSIUM, SERUM 4.1 MMOL/L (3.5-5.3)
[2016-10-22 08:25] LABS: BUN (BLOOD UREA NITROGEN) 43 MG/DL (6-23); SODIUM, SERUM 133 MMOL/L (135-148)
[2016-10-22] MEDS ORDERED: COREG3 PO (11:34)
[2016-10-22] MEDS ORDERED: COZ50 PO (11:35)
[2016-12-25] MEDS ORDERED: SODBICAR10 PO (13:52)
[2016-12-25] MEDS ORDERED: TRADJENTA5 MG PO (15:09)
[2016-12-27] MEDS ORDERED: PLAVIX PO (18:10)
[2017-02-01] MEDS ORDERED: PHOSLO PO (12:55)
== END 2016-10-22 14:23 | disposition home health service (06) | DRG 266 ==
LOC: SDC/OF 05:28 → CVICU 16:03 → 5NO 10-16 19:26 → CVICU 10-16 22:43 → 5NO 10-18 14:56
PROVIDERS: Internal Medicine Nephrology; Psychiatry & Neurology Neurology; Thoracic Surgery (Cardiothoracic Vascular Surgery)
PROC: 047K3ZZ Dilation of Right Femoral Artery, Percutaneous Approach (ICD-10-PCS; 2016-10-15)
PROC: 047C3ZZ Dilation of Right Common Iliac Artery, Percutaneous Approach (ICD-10-PCS; 2016-10-15)
PROC: 5A1D60Z (ICD-10-PCS; 2016-10-15)
PROC: 02RF38Z Replacement of Aortic Valve with Zooplastic Tissue, Percutaneous Approach (ICD-10-PCS; principal; 2016-10-15 14:30)
DX: I35.0 Nonrheumatic aortic (valve) stenosis (principal); N18.6 End stage renal disease; I63.9 Cerebral infarction, unspecified; I13.2 Hypertensive heart and chronic kidney disease with heart failure and with stage 5 chronic kidney disease, or end stage renal disease; G93.40 Encephalopathy, unspecified; I50.22 Chronic systolic (congestive) heart failure; I97.820 Postprocedural cerebrovascular infarction following cardiac surgery; E11.22 Type 2 diabetes mellitus with diabetic chronic kidney disease; I25.10 Atherosclerotic heart disease of native coronary artery without angina pectoris; I73.9 Peripheral vascular disease, unspecified; Z86.73 Personal history of transient ischemic attack (TIA), and cerebral infarction without residual deficits; C61 Malignant neoplasm of prostate; Z00.6 Encounter for examination for normal comparison and control in clinical research program; Z99.2 Dependence on renal dialysis; D45 Polycythemia vera
CPT/HCPCS: 36415; 70450; 70496; 70498; 70551-52; 71010; 71020; 80048; 80053; 80069; 81001; 82330; 82803; 82947; 82962; 83036; 83735; 83880; 84132; 84295; 85014; 85018; 85025; 85049; 85347; 85384; 85576; 85576-59; 85610; 85730; 86850; 86900; 86901; 86920; 87641; 93005; 95816; 97161-GP; A9270-GY; C1769; C1894; C8929; G0257; G8978-CI-GP; G8979-CH-GP; J0690; J2250; J2405; J2710; J2795; J3010; Q9957; Q9967